=== PATIENT | male | born 2000 | race Two or more races ===

== ENCOUNTER 2025-06-01 12:09 | Emergency (ER) | payer BC ==
[~2025-06-01] VITALS: Ht 172.7 cm; Wt 94.2 kg
[2025-06-01 12:43] VITALS: TEMP 98.4
--- NOTE | 2025-06-01 12:46 | ED.PDOC ---
HPI Comments This is a pleasant 24-year-old male who is right-hand dominant and has no MHx that presents for a laceration that occurred 1 hour ago The patient was patching a wall in the bathroom when he fell of the side of the tub and hit a candle Sustained a laceration to the proximal/lateral right forearm Pain rated mild/moderate No associated symptoms Denies restrictions in his range of motion. Last tetanus shot unknown: Time Seen by MD: 12:46 Reviewed Notes: Nurses Notes, Medications, Allergies Allergies: Coded Allergies: NO KNOWN ALLERGIES (Unverified , 06/01/25) Information Source: Patient Complexity: Intermediate Laceration Length (cm): 3 Past Medical History PAST MEDICAL HISTORY: Denies Surgical History: Denies all surgeries Family History Family History: Reviewed,noncontributory to illness Social History Smoker: Non-Smoker Alcohol: Denies ETOH Use Drugs: Denies Drug Use All Other Systems: Reviewed and Negative (PER HPI) Physical Exam General Appearance: No Apparent Distress, Normal HEENT: Normal ENT Inspection, Pharynx Normal, TMs Normal Neck: Full Range of Motion, Non-Tender, Normal, Normal Inspection Respiratory: Chest Non-Tender, Lungs Clear, No Accessory Muscle Use, No Respiratory Distress, Normal Breath Sounds Cardiovascular: No Murmur, No Gallop, Regular Rate/Rhythm Breast Exam: Deferred Gastrointestinal: No Organomegaly, Non Tender, No Pulsatile Mass, Normal Bowel Sounds, Soft Genitalia: Deferred Pelvic: Deferred Rectal: Deferred Extremities: No calf tenderness, Normal capillary refill, Normal inspection, Normal range of motion, Non-tender, No pedal edema Musculoskeletal : Apperance: Normal Neurologic: Alert, marking machine operator II-XII nml as Tested, No Motor Deficits, Normal Affect, Normal Mood, No Sensory Deficits Cerebellar Function: Normal Reflexes: Normal Skin: Dry, Normal Color, Warm Lymphatic: No Adenopathy Was a procedure done? Was a procedure done?: Yes Sedation Sedation?: No Laceration Repair : Location forearm Length 4 Anesthetic: Lidocaine, Without epi Laceration Repair Prep: Saline, by Irrigation, Manual Scrub Laceration Repair Wound Comple: epidermis/dermis repair Laceration Repair: Size (4-0), Simple, Bacitracin, Non-adherent gauze, Gauze Informed consent obtained: Yes Risks, benefits, and alternati: Yes Images 1 - 3 cm. linear. no active bleeding. no fb. no erythema Differential diagnosis Generic Laceration: Abrasion/Contusion, Laceration, Avulsion X-Ray, Labs, Meds, VS Vital Signs Date Time Temp Pulse Resp B/P (MAP) Pulse Ox O2 Delivery O2 Flow Rate FiO2 06/01/25 14:02 62 18 102/56 (71) 94 06/01/25 14:02 67 18 94 Room Air 06/01/25 12:43 98.4 61 16 102/66 (78) 98 98.4 X-Ray, Labs, Meds, VS Comment This is a pleasant 24-year-old male who is right-hand dominant and has no MHx that presents for a laceration that occurred 1 hour ago Patient arrives alert and oriented, ABC's intact, afebrile, vital signs stable, saturating well in room air The skin edges of the laceration were infiltrated with 1% lidocaine The skin surrounding the laceration was scrubbed with Betadine soaked sterile gauze The laceration was irrigated under high-pressure with a 60 mL syringe A total of 1L sterile water was used. The laceration was prepped in sterile fashion with sterile drapes On examination under direct light, there was no foreign body seen The laceration was repaired in simple interrupted technique There was no continuing bleeding on repair. There were no complications related to repair Declined Tdap. Ed provided. Education and follow-up instructions provided Wound check in 2 days Return sooner for signs of infection such as fevers, increased pain, redness, green, yellow discharge, or any concerns Keep wound dry for 24 to 48 hours; dry dressing may be changed Protect from sunlight and keep area clean and dry. Use soap and water if it gets dirty High risk of possible scarring and education provided on ways to minimize scarring after wound heals Also provided education on possible complications post procedure including wound dehiscence, infection, etc. Additional MDM Review of External, Non-ED records: External records reviewed. Discussion with independent historian (EMS, family) history obtained from the patient/parents (if applicable) at bedside Chronic conditions affecting care: None Social determinants of health affecting care: None Consideration of admission (observation or admission): I considered escalation of care to admission for this patient, however given the reassuring workup, the patient is safe for outpatient management. Time of 1ST Reevaluation: 12:45 Reevaluation 1ST: Improved Time of 2ND Reevaluation: 13:00 Reevaluation 2ND: Improved Patient Education/Counseling: Diagnosis, Treatment Family Education/Counseling: Diagnosis, Treatment Departure 1 Departure Time of Disposition: 13:23 Impression: Primary Impression: Laceration Disposition: 01 HOME / SELF CARE / HOMELESS Condition: Stable Discharged With: Self Critical Care Note Critical Care Time?: No Stability Stability form required: No Heart Score Heart Score: Heart Score Response (Comments) Value History N/A 0 EKG N/A 0 Age N/A 0 Risk Factors N/A 0 Troponin N/A 0 Total 0 I personally scribed for KRISTAN HARE NP ([email or web address]) on 06/01/25 at 13:16. Electronically submitted by Rick Taylor ([email or web address]). KRISTAN HARE NP Jun 01, 2025 12:45
[2025-06-01] MEDS: NEOMYCIN-BACITRACIN-POLYM UNITDOSE PKG TOP OINT TOP ONE (13:30)
[2025-06-01 14:02] VITALS: BP 102/56; PULSE 67; RESP 18; O2SAT 94
== END 2025-06-01 14:08 | disposition home or self-care (01) ==
LOC: EEVIPCON 12:09 → ER 12:09
DX: S51.811A Laceration without foreign body of right forearm, initial encounter (principal); W19.XXXA Unspecified fall, initial encounter; Y93.89 Activity, other specified; Y92.89 Other specified places as the place of occurrence of the external cause; Y99.8 Other external cause status
CPT/HCPCS: 12002